=== PATIENT | female | born 1965 | race Caucasian/White ===

== ENCOUNTER 2017-08-22 08:31 | Day surgery (SDC) | payer MEDICAID ==
[~2017-08-22 08:31] MED LIST: Acetaminophen/HYDROcodone 325-5 MG Tab PO PRN; Bupivacaine 0.25%/EPINEPHrine 1:200,000 10 ML SDV INJECT ONE; Bupivacaine 25%/EPINEPHrine/PF 30 ML ONE; Clindamycin Phosphate in D5W 600 MG in Premix Bag 1 BAG IV ONE; Lactated Ringers 1,000 ML IV SCH; Midazolam 1 MG/ML 2 ML SDV ONE; Propofol 200 MG/20 ML SDV ONE; fentaNYL 100 MCG/2 ML SDV ONE
--- NOTE | 2017-08-22 11:07 | PCM.PREANE ---
Preanesthetic Assessment - Procedure Proposed Procedure: excision of left arm melanoma with sentinel lymph node biopsy MRSA - Anesthesia/Transfusion/Family Hx Anesthesia History: Prior Anesthesia Without Reaction Family History of Anesthesia Reaction: No Transfusion History: No Prior Transfusion(s) - Review of Systems Other: Reports: None - Physical Assessment NPO Status Date: 08/21/17 NPO Status Time: 22:00 O2 Sat by Pulse Oximetry: 94 Respiratory Rate: 16 Vital Signs: Last Vital Signs Temp 37.5 C 08/22/17 08:45 Pulse 80 08/22/17 08:45 Resp 16 08/22/17 08:45 BP 121/59 L 08/22/17 08:45 Pulse Ox 94 L 08/22/17 08:45 Height: 5 ft 2 in Weight: 72.121 kg ASA Class: 2 Mental Status: Alert & Oriented x3 Airway Class: Mallampati = 1 Dentition: Reports: Edentulous Thyro-Mental Finger Breadths: 3 Mouth Opening Finger Breadths: 3 ROM/Head Extension: Full - Allergies Allergies/Adverse Reactions: Allergies Allergy/AdvReac Type Severity Reaction Status Date / Time cefoxitin [From Mefoxin] Allergy Hives Verified 08/18/17 11:44 Sulfa (Sulfonamide Allergy Hives Verified 08/18/17 11:44 Antibiotics) - Acknowledgements Anesthesia Type Planned: General Anesthesia (LMA vs ETT. Reflux controlled) Pt an Appropriate Candidate for the Planned Anesthesia: Yes Alternatives and Risks of Anesthesia Discussed w Pt/Guardian: Yes Pt/Guardian Understands and Agrees with Anesthesia Plan: Yes PreAnesthesia Questionnaire HEENT History: Reports: Other (See Below) Other HEENT History: wears glasses/ no teeth Cardiovascular History: Reports: High Cholesterol, Hypertension Respiratory History: Reports: Asthma, Other (See Below) Other Respiratory History: asthma in the past Gastrointestinal History: Reports: GERD Genitourinary History: Reports: None APPRAISER LAND History: Reports: Musculoskeletal History: Reports: Arthritis, Fracture, Neck Pain, Chronic Other Musculoskeletal History: hx fx ankle and lazara wrists Neurological History: Reports: Migraines, Neuropathy, Peripheral Psychiatric History: Reports: Anxiety, Depression Oncologic (Cancer) History: Reports: Malignant Melanoma, Other (See Below) Other Oncologic History: melanoma left forearm - Infectious Disease History Other Infectious Disease History: 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 - Past Surgical History Head Surgeries/Procedures: Reports: None Female Surgical History: Reports: Section, Hysterectomy Musculoskeletal Surgical History: Reports: Carpal Tunnel, Other (See Below) Other Musculoskeletal Surgeries/Procedures:: hx skin debridement from back rt arm and left leg due to necrotizing infection, hx left ankle surgery for torn ligaments Dermatological Surgical History: Reports: Skin Biopsy, Other (See Below) - SUBSTANCE USE Smoking Status *Q: Current Every Day Smoker Tobacco Use Within Last Twelve Months: Cigarettes Recreational Drug Use History: No - HOME MEDS Home Medications: Home Meds Baclofen 20 mg PO DAILY 08/18/17 [History] Gabapentin [Neurontin] 100 mg PO DAILY 08/18/17 [History] LORazepam [Ativan] 0.5 mg PO ASDIRECTED PRN 08/18/17 [History] Lisinopril 10 mg PO DAILY 08/18/17 [History] Meloxicam 15 mg PO DAILY 08/18/17 [History] Pantoprazole Sodium 40 mg PO DAILY 08/18/17 [History] Simvastatin [Zocor] 10 mg PO DAILY 08/18/17 [History] Venlafaxine [Effexor XR] 75 mg PO DAILY 08/18/17 [History] hydrOXYzine HCl [hydrOXYzine] 25 mg PO ASDIRECTED PRN 08/18/17 [History] traMADol HCl [Tramadol HCl] 50 mg PO BEDTIME PRN 08/18/17 [History] - CURRENT (IN HOUSE) MEDS Current Meds: Current Medications Hydrocodone Bitart/Acetaminophen ([place] 325-5 Mg) 1 tab PO Q4H PRN PRN Reason: Pain Lactated Ringer's (Ringers, Lactated) 1,000 mls @ 125 mls/hr IV ASDIRECTED YOUSIF Last Admin: 08/22/17 09:00 Dose: 125 mls/hr Discontinued Medications Bupivacaine HCl/Epinephrine Bitart (Marcaine 0.25%/Epinephrine 1:200,000) 10 ml INJECT ONETIME ONE Stop: 08/22/17 08:01 Fentanyl (Sublimaze) Confirm Administered Dose 100 mcg .ROUTE .STK-MED ONE Stop: 08/22/17 07:48 Clindamycin Phosphate 600 mg/ (Premix) 50 mls @ 150 mls/hr IV ONETIME ONE Stop: 08/22/17 08:19 Bupivacaine HCl/Epinephrine Bitart (Sensorc Mpf 0.25%-Epi [id number]) Confirm Administered Dose 30 mls @ as directed .ROUTE .STK-MED ONE Stop: 08/22/17 07:51 Midazolam HCl (Versed 1 Mg/Ml) Confirm Administered Dose 2 mg .ROUTE .STK-MED ONE Stop: 08/22/17 07:48 Propofol (Diprivan 20 Ml) Confirm Administered Dose 200 mg .ROUTE .STK-MED ONE Stop: 08/22/17 07:48
[2017-08-22] MEDS ORDERED: Phenylephrine 1% 10 MG/ML SDV ONE (12:34)
--- NOTE | 2017-08-22 13:10 | NM ---
EXAMINATION: Left forearm lymphoscintigraphy HISTORY: Melanoma COMPARISON: None TECHNIQUE: The area surrounding the biopsy site was sterilely prepped with ChloraPrep. A total of 4 i ntradermal injections were made surrounding the previous biopsy site using 0.6 mCi of technetium 99 M labeled sulfur colloid. Planar images were obtained over the upper extremity. FINDINGS/IMPRESSION: The ejection site is noted over the forearm region. There is however no notable activity within the more proximal forearm or thorax up to one-hour period.
--- NOTE | 2017-08-22 13:20 | PCM.POSTAN ---
POST ANESTHESIA ASSESSMENT - MENTAL STATUS Mental Status: Alert, Oriented - RESPIRATORY Respiratory Status: Respiratory Rate WNL, Airway Patent, O2 Saturation Stable - CARDIOVASCULAR CV Status: Pulse Rate WNL, Blood Pressure Stable - GASTROINTESTINAL GI Status: No Symptoms - PAIN Pain Score: 0 - POST OP HYDRATION Hydration Status: Adequate & Stable
--- NOTE | 2017-08-22 13:30 | PCM.OPNOTE ---
- General Post-Op/Procedure Note Date of Surgery/Procedure: 08/22/17 Operative Procedure(s): excision of left arm melanoma 5cm with intermediate 5cm closure and left epitrochlear sentinel lymph node biopsy. Pre Op Diagnosis: left arm melanoma needing 2cm margins Post-Op Diagnosis: Same Anesthesia Technique: General LMA, Local Primary Surgeon: Tati Alonzo Complications: None Condition: Good
--- NOTE | 2017-08-22 13:39 | PCM48HPAN ---
Post Anesthesia Note - EVALUATION WITHIN 48HRS OF ANESTHETIC Vital Signs in Normal Range: Yes Patient Participated in Evaluation: Yes Respiratory Function Stable: Yes Airway Patent: Yes Cardiovascular Function Stable: Yes Hydration Status Stable: Yes Pain Control Satisfactory: Yes Nausea and Vomiting Control Satisfactory: Yes Mental Status Recovered: Yes Resp Rate: 16
--- NOTE | 2017-08-26 08:26 | OR ---
SURGEON: AMARILIS GRAYSON MD DATE OF PROCEDURE: 08/22/2017 PREOPERATIAVE DIAGNOSIS: Left arm melanoma needing 2 cm margins. POSTOPERATIVE DIAGNOSIS: Left arm melanoma needing 2 cm margins. PROCEDURES: 1. Excision of left arm melanoma 5 cm with intermediate 5 cm closure. 2. Left epitrochlear sentinel lymph node biopsy. SHAKE OUT WORKER: None. ANESTHESIA: General LMA with local. INDICATIONS: Ms. Cleaning is a 52-year-old female with a melanoma of the left arm with a shave biopsy at an outside hospital. Risks and benefits of excision of this incompletely excised melanoma with a 2-cm margin given the depth of 1.56 mm was discussed with her thoroughly. She was in agreement to proceed. Risks were including, but not limited to, bleeding, infection, damage to underlying or overlying structures, possible need for future interventions, possible scarring. Given the depth, we discussed risks and benefits of a sentinel lymph node biopsy. I would recommend this for her. Risks were including, but not limited to bleeding, infection, damage to underlying or overlying structures, possible need for future interventions, and possible scarring. PROCEDURE IN DETAIL: After informed consent was obtained and placed on the chart, the patient was brought to the operating theater and laid in supine position. After adequate general anesthesia was obtained, the area was prepped and draped, a time-out was completed to confirm side and site. Attention was then paid first to the left arm sentinel node and the Arsen counter as well as blue dye was used for location of this. We did inject blue dye around the area as the imaging was unable to locate the sentinel node on direct visualization, likely very slow lymph drainage. Both localized to the epitrochlear area and a small incision was made over the left epitrochlear sentinel lymph node and dissection was carried through skin and subcutaneous tissues taking care to protect all cutaneous nerves. The lymph node was easily located, removed and sent for pathology. Meticulous hemostasis was obtained and the wound was closed using deep Monocryl stitches in a running subcuticular for the skin for a total length of closure of 1.5 cm. The patient tolerated this well and this was dressed with Steri-Strips. Attention was then paid to the left dorsal forearm melanoma. It was marked for its margins of 2 cm around it and approximately 1 cm lesion itself. The elliptical excision was made and a marking stitch was placed at 12 o'clock. Once adequately excised down to the fat layer, meticulous hemostasis was obtained and the skin was brought together primary closure with deep 3-0 Monocryl stitches and a running 4-0 subcuticular for the skin. The wound was then dressed with Steri-Strips, marginally tight closure at the center, but the wound edges came together nicely. Once adequately closed and dressed, the arm was then wrapped with a 2-inch Ronnie wrap to the wrist and a 3-inch Ronnie wrap for the upper trochlear area. The patient tolerated this well. All counts needles were correct at the end of the case. FOLLOWUP INSTRUCTIONS: The patient will see us in clinic in approximately 2 weeks and we will call sooner with any pathology results. All questions answered today. LINDA BIANCHI /[id number]
== END 2017-08-22 14:45 | disposition home or self-care (01) ==
LOC: MW.SDS 08:31
PROVIDERS: ATTEND Plastic Surgery
DX: C43.62 Malignant melanoma of left upper limb, including shoulder (principal); R59.9 Enlarged lymph nodes, unspecified; I10 Essential (primary) hypertension; J45.909 Unspecified asthma, uncomplicated; K21.9 Gastro-esophageal reflux disease without esophagitis; G89.29 Other chronic pain; M19.90 Unspecified osteoarthritis, unspecified site; M54.2 Cervicalgia; E78.00 Pure hypercholesterolemia, unspecified; F41.9 Anxiety disorder, unspecified; F32.9 Major depressive disorder, single episode, unspecified; F17.210 Nicotine dependence, cigarettes, uncomplicated; Z88.1 Allergy status to other antibiotic agents; Z88.2 Allergy status to sulfonamides; Z79.899 Other long term (current) drug therapy
CPT/HCPCS: 11606; 12032; 38500; A9270; J2250; J2370; J3010; J7120; 78195; 78195-26; A9541; J2704; J3490

== ENCOUNTER 2022-05-28 16:17 | Emergency (ER) | payer MEDICAID ==
[2022-05-28] MEDS ORDERED: methylPREDNISolone Sodium Succinate 40 MG/1 ML SDV IVPUSH STA (16:46)
[2022-05-28] MEDS ORDERED: Morphine 4 MG/ML Syringe IVPUSH STA ×2 (16:47→19:29)
[2022-05-28] MEDS ORDERED: Sodium Chloride 0.9% 2.5 ML Syringe FLUSH PRN (17:24)
[2022-05-28] MEDS ORDERED: Sodium Chloride 0.9% 10 ML Syringe FLUSH PRN (17:24)
[2022-05-28 18:23] LABS: CARBON DIOXIDE,CO2 19.1 mmol/L (21.0-32.0); POTASSIUM,K 4.2 mmol/L (3.5-5.1)
[2022-05-28] MEDS ORDERED: Sodium Chloride 0.9% 1,000 ML IV STA ×2 (18:46→18:47)
[2022-05-28] MEDS ORDERED: Iopamidol 755 MG/ML 500 ML Multipack Bottle IVPUSH ONE (18:51)
[2022-05-28] MEDS ORDERED: Alum Hydro/Mag Hydro/Simeth XS 15 ML, Lidocaine 2% 5 ML PO STA ×2 (20:57)
[2022-05-28] MEDS ORDERED: Lidocaine 5% 700 MG Patch TRDERM STA (21:42)
[2022-05-28] MEDS ORDERED: Diazepam 5 MG Tab PO STA (21:42)
== END 2022-05-28 22:59 | disposition home or self-care (01) ==
LOC: MW.ED 16:17
DX: M62.830 Muscle spasm of back (principal); I10 Essential (primary) hypertension; E78.00 Pure hypercholesterolemia, unspecified; Z88.1 Allergy status to other antibiotic agents; Z88.2 Allergy status to sulfonamides; Z79.899 Other long term (current) drug therapy
CPT/HCPCS: 36415; 71045; 71275; 80053; 81001; 83735; 84484; 85025; 87086; 93005; 96361; 96374; 96375; 96376; 99285; A9270; J2270; J2920; J3490; J7030; Q9967; 93010; 99284

== ENCOUNTER 2022-05-29 21:44 | Emergency (ER) | payer MEDICAID ==
[2022-05-29] MEDS ORDERED: Morphine 4 MG/ML Syringe IVPUSH PRN (23:46)
== END 2022-05-30 03:52 | disposition home or self-care (01) ==
LOC: MW.ED 21:44
DX: M54.6 Pain in thoracic spine (principal); E78.00 Pure hypercholesterolemia, unspecified; I10 Essential (primary) hypertension; K21.9 Gastro-esophageal reflux disease without esophagitis; J45.909 Unspecified asthma, uncomplicated; Z79.899 Other long term (current) drug therapy; Z88.2 Allergy status to sulfonamides; Z88.1 Allergy status to other antibiotic agents
CPT/HCPCS: 36415; 84484; 93005; 96374; 96375; 99284; J2270; J3360; 93010